=== PATIENT | male | born 1980 | race Caucasian/White ===

== ENCOUNTER 2018-01-28 14:04 | Observation (INO) | payer SELFPAY, MEDICAID ==
[2018-01-28 15:26] LABS: ADD MAN DIFF? NO
[2018-01-28 15:28] LABS: WHITE BLOOD COUNT 13.2 10^3/ul (4.8-10.8)
[2018-01-28 15:28] LABS: BASOPHILS % 0.3 % (0.0-2.0); EOSINOPHILS # 0.4 10^3/ul (0.0-0.5); EOSINOPHILS % 3.3 % (0.0-7.0); HEMATOCRIT 47.6 % (42.0-52.0); HEMOGLOBIN 17.1 g/dl (14.0-18.0); LYMPHOCYTES # 3.3 10^3/ul (0.8-2.9); LYMPHOCYTES % 25.2 % (15.0-51.0); MEAN CORPUSCULAR HEMOGLOBIN 33.3 pg (29.0-33.0); MEAN CORPUSCULAR HGB CONC 35.9 g/dl (32.0-37.0); MEAN CORPUSCULAR VOLUME 92.6 fl (82.0-101.0); MEAN PLATELET VOLUME 10.5 fl (7.4-10.4); MONOCYTE # 1.1 10^3/ul (0.3-0.9); MONOCYTES % 8.5 % (0.0-11.0); NEUTROPHIL # 8.2 10^3/ul (1.6-7.5); NEUTROPHILS % 62.2 % (39.0-77.0); PLATELET COUNT 270 10^3/UL (140-415); RED BLOOD COUNT 5.14 10^6/ul (4.70-6.10)
[2018-01-28] MEDS: ONDANSETRON 4 MG INJ IV (15:38)
[2018-01-28] MEDS: morphine 4 MG/ML VIAL IV (15:38)
[2018-01-28] MEDS: SOD CHLORIDE 0.9% 1,000 ML IV ×2 (15:39→18:37)
[2018-01-28 15:45] LABS: ALANINE AMINOTRANSFERASE 96 IU/L (13-69); ALBUMIN 4.4 g/dl (3.3-4.9); ALBUMIN/GLOBULIN RATIO 1.15; ALKALINE PHOSPHATASE 109 IU/L (42-121); ANION GAP 18 (8-16); ASPARTATE AMINO TRANSFERASE 100 IU/L (15-46); BILIRUBIN,INDIRECT 0.7 mg/dl (0-1.1); BILIRUBIN,TOTAL 0.7 mg/dl (0.2-1.3); BLOOD UREA NITROGEN 11 mg/dl (7-20); CALCIUM 9.4 mg/dl (8.4-10.2); CARBON DIOXIDE 27 mmol/L (21-31); CHLORIDE 100 mmol/L (97-110); CREATININE 0.69 mg/dl (0.61-1.24); GLUCOSE 104 mg/dl (70-220); LIPASE 1237 U/L (23-300); POTASSIUM 3.7 mmol/L (3.5-5.1); SODIUM 141 mmol/L (135-144); TOTAL PROTEIN 8.2 g/dl (6.1-8.1)
[2018-01-28] MEDS: HYDROmorphONE 0.5 MG/0.5 ML SYG IV (16:31)
[2018-01-28 16:40] LABS: ADD UMIC YES; UR ASCORBIC ACID 20 mg/dL (NEGATIVE); UR BILIRUBIN (Dip) NEGATIVE (NEGATIVE); UR BLOOD (Dip) 2+ mg/dL (NEGATIVE); UR CLARITY CLOUDY (CLEAR); UR COLOR AMBER (YELLOW); UR GLUCOSE (Dip) NEGATIVE (NEGATIVE); UR KETONES (Dip) NEGATIVE (NEGATIVE); UR LEUKOCYTE ESTERASE (Dip) NEGATIVE Leu/ul (NEGATIVE); UR MUCUS MANY /HPF (NONE SEEN); UR NITRITE (Dip) NEGATIVE (NEGATIVE); UR RBC 24 /HPF (0-5); UR TOTAL PROTEIN (Dip) 3+ mg/dl (NEGATIVE); UR UROBILINOGEN (Dip) NEGATIVE (NEGATIVE); UR WBC 2 /HPF (0-5)
[2018-01-28] MEDS ORDERED: ACETAMINOPHEN 325 MG TAB PO ×2 (17:00→17:30)
[2018-01-28] MEDS ORDERED: ONDANSETRON 4 MG INJ IV (17:00)
[2018-01-28 17:03] LABS: ETHANOL < 10.0 mg/dl
[2018-01-28] MEDS ORDERED: HYDROmorphONE 0.5 MG/0.5 ML SYG IV (17:30)
[2018-01-28] MEDS ORDERED: MAGNESIUM HYDROXIDE 30ML CUP PO (17:30)
[2018-01-28] MEDS ORDERED: DOCUSATE SODIUM 100 MG CAP PO (17:30)
[2018-01-28] MEDS ORDERED: NACL 0.9% 3 ML SYG IV (17:30)
[2018-01-28] MEDS ORDERED: GLUCOSE GEL 15 GRAM TUBE BUCCAL (18:30)
[2018-01-28] MEDS ORDERED: DEXTROSE 50% 50 ML SYRINGE IV ×2 (18:30)
[2018-01-28] MEDS ORDERED: GLUCOSE GEL 15 GRAM TUBE PO ×2 (18:30)
[2018-01-28] MEDS ORDERED: GLUCAGON 1 MG INJ IM (18:30)
[2018-01-28] MEDS: DEXTROSE 5%-0.45% NACL 1,000 ML IV (18:56)
[2018-01-28 20:03] LABS: HEMOGLOBIN A1C 5.7 % (0-5.9)
[2018-01-28 20:06] LABS: CHOLESTEROL 203 mg/dl (100-200)
[2018-01-28 20:06] LABS: CHOL/HDL RATIO 5.2 RATIO; HDL CHOLESTEROL 39 mg/dl (28-63)
[2018-01-28] MEDS: INSULIN ASPART [NOVOLOG] 3 ML PEN SC (20:18)
[2018-01-28 20:31] LABS: TRIGLYCERIDES 1043 mg/dl (0-149)
[2018-01-28] MEDS: morphine 2 MG INJ IV (22:39)
[2018-01-29] MEDS: morphine 2 MG INJ IV ×4 (02:45→22:19)
[2018-01-29] MEDS: INSULIN ASPART [NOVOLOG] 3 ML PEN SC ×5 (05:00→20:28)
[2018-01-29] MEDS: PANTOPRAZOLE 40 MG INJ IV (05:34)
[2018-01-29] MEDS: DEXTROSE 5%-0.45% NACL 1,000 ML IV (05:34)
[2018-01-29] MEDS: ONDANSETRON 4 MG INJ IV (05:44)
[2018-01-29 05:57] LABS: ADD MAN DIFF? NO
[2018-01-29 06:00] LABS: WHITE BLOOD COUNT 11.6 10^3/ul (4.8-10.8)
[2018-01-29 06:00] LABS: BASOPHILS % 0.3 % (0.0-2.0); EOSINOPHILS # 0.5 10^3/ul (0.0-0.5); EOSINOPHILS % 4.3 % (0.0-7.0); HEMATOCRIT 43.6 % (42.0-52.0); HEMOGLOBIN 15.7 g/dl (14.0-18.0); LYMPHOCYTES # 2.8 10^3/ul (0.8-2.9); LYMPHOCYTES % 23.9 % (15.0-51.0); MEAN CORPUSCULAR HEMOGLOBIN 32.5 pg (29.0-33.0); MEAN CORPUSCULAR VOLUME 90.3 fl (82.0-101.0); MEAN PLATELET VOLUME 10.5 fl (7.4-10.4); MONOCYTES % 8.2 % (0.0-11.0); NEUTROPHIL # 7.3 10^3/ul (1.6-7.5); PLATELET COUNT 219 10^3/UL (140-415); RED BLOOD COUNT 4.83 10^6/ul (4.70-6.10); RED CELL DISTRIBUTION WIDTH 12.1 % (11.5-14.5)
[2018-01-29 06:44] LABS: LIPASE 2148 U/L (23-300)
[2018-01-29 06:46] LABS: ALANINE AMINOTRANSFERASE 66 IU/L (13-69); ALBUMIN/GLOBULIN RATIO 1.29; ALKALINE PHOSPHATASE 92 IU/L (42-121); ANION GAP 16 (8-16); ASPARTATE AMINO TRANSFERASE 59 IU/L (15-46); BILIRUBIN,INDIRECT 1.5 mg/dl (0-1.1); BILIRUBIN,TOTAL 1.5 mg/dl (0.2-1.3); BLOOD UREA NITROGEN 5 mg/dl (7-20); CALCIUM 8.7 mg/dl (8.4-10.2); CARBON DIOXIDE 25 mmol/L (21-31); CHLORIDE 100 mmol/L (97-110); GLUCOSE 127 mg/dl (70-220); MAGNESIUM 1.3 mg/dl (1.7-2.5); POTASSIUM 3.1 mmol/L (3.5-5.1); SODIUM 138 mmol/L (135-144); TOTAL PROTEIN 7.1 g/dl (6.1-8.1)
[2018-01-29] MEDS: ASPIRIN (EC) 81 MG TAB PO (08:20)
[2018-01-29] MEDS ORDERED: LORAZEPAM 1 MG TAB PO (11:30)
[2018-01-29] MEDS: POTASSIUM CHLORIDE (SR) 20 MEQ TAB PO (12:00)
[2018-01-29] MEDS: FOLIC ACID 1 MG TAB PO (12:05)
[2018-01-29] MEDS: THIAMINE 100 MG TAB PO (12:05)
[2018-01-29] MEDS: NS + KCL 20 MEQ 1,000 ML IV ×2 (12:06→21:30)
[2018-01-29] MEDS: MAGNESIUM SULFATE 3 GM in DEXTROSE 5% 100 ML IVPB (13:09)
[2018-01-29] MEDS: INFLUENZA VIRUS VACCINE 0.5 ML SYG IM* (16:47)
[2018-01-29] MEDS ORDERED: INSULIN ASPART [NOVOLOG] 3 ML PEN SC (18:05)
[2018-01-30] MEDS: NS + KCL 20 MEQ 1,000 ML IV ×3 (01:40→17:30)
[2018-01-30] MEDS: ACCU-CHEK XX (02:00)
[2018-01-30] MEDS: PANTOPRAZOLE 40 MG INJ IV (05:41)
[2018-01-30 06:38] LABS: ADD MAN DIFF? NO
[2018-01-30 06:47] LABS: WHITE BLOOD COUNT 9.8 10^3/ul (4.8-10.8)
[2018-01-30 06:47] LABS: BASOPHILS % 0.3 % (0.0-2.0); EOSINOPHILS # 0.9 10^3/ul (0.0-0.5); EOSINOPHILS % 8.7 % (0.0-7.0); HEMATOCRIT 44.9 % (42.0-52.0); HEMOGLOBIN 15.5 g/dl (14.0-18.0); LYMPHOCYTES # 2.1 10^3/ul (0.8-2.9); LYMPHOCYTES % 21.5 % (15.0-51.0); MEAN CORPUSCULAR HEMOGLOBIN 32.4 pg (29.0-33.0); MEAN CORPUSCULAR HGB CONC 34.5 g/dl (32.0-37.0); MEAN CORPUSCULAR VOLUME 93.9 fl (82.0-101.0); MONOCYTE # 0.7 10^3/ul (0.3-0.9); MONOCYTES % 6.6 % (0.0-11.0); NEUTROPHIL # 6.1 10^3/ul (1.6-7.5); NEUTROPHILS % 62.5 % (39.0-77.0); PLATELET COUNT 201 10^3/UL (140-415); RED BLOOD COUNT 4.78 10^6/ul (4.70-6.10); RED CELL DISTRIBUTION WIDTH 12.2 % (11.5-14.5)
[2018-01-30 07:15] LABS: ALANINE AMINOTRANSFERASE 58 IU/L (13-69); ALBUMIN 4.2 g/dl (3.3-4.9); ALBUMIN/GLOBULIN RATIO 1.27; ALKALINE PHOSPHATASE 93 IU/L (42-121); ANION GAP 15 (8-16); ASPARTATE AMINO TRANSFERASE 47 IU/L (15-46); BILIRUBIN,INDIRECT 1.6 mg/dl (0-1.1); BILIRUBIN,TOTAL 1.6 mg/dl (0.2-1.3); BLOOD UREA NITROGEN 5 mg/dl (7-20); CALCIUM 9.2 mg/dl (8.4-10.2); CARBON DIOXIDE 30 mmol/L (21-31); CHLORIDE 101 mmol/L (97-110); CREATININE 0.72 mg/dl (0.61-1.24); GLUCOSE 100 mg/dl (70-220); LIPASE 1037 U/L (23-300); POTASSIUM 4.3 mmol/L (3.5-5.1); SODIUM 142 mmol/L (135-144); TOTAL PROTEIN 7.5 g/dl (6.1-8.1)
[2018-01-30] MEDS: INSULIN ASPART [NOVOLOG] 3 ML PEN SC ×3 (08:00→17:45)
[2018-01-30] MEDS: ASPIRIN (EC) 81 MG TAB PO (09:19)
[2018-01-30] MEDS: FOLIC ACID 1 MG TAB PO (09:19)
[2018-01-30] MEDS: THIAMINE 100 MG TAB PO (09:20)
[2018-01-30] MEDS ORDERED: morphine LIQ (10 MG/5 ML) CUP PO (15:00)
== END 2018-01-30 18:40 | disposition home or self-care (01) ==
LOC: FTE 14:04 → PP2 16:56
DX: K85.20 Alcohol induced acute pancreatitis without necrosis or infection (principal); E10.9 Type 1 diabetes mellitus without complications; R74.0 Nonspecific elevation of levels of transaminase and lactic acid dehydrogenase [LDH]; R11.2 Nausea with vomiting, unspecified; F10.10 Alcohol abuse, uncomplicated; Z79.84 Long term (current) use of oral hypoglycemic drugs; Z79.82 Long term (current) use of aspirin; Z23 Encounter for immunization
CPT/HCPCS: 76705; 80053; 80061; 80306; 81001; 82962; 83036; 83690; 83735; 85025; 90686; 96374; 96375; 99285-25; G0378

== ENCOUNTER 2018-06-30 23:24 | Emergency (ER) | payer SELFPAY | END 2018-07-01 02:49 | disposition left against medical advice (07) | LOC: FTE 23:24 | DX: Z53.21 Procedure and treatment not carried out due to patient leaving prior to being seen by health care provider (principal) ==

== ENCOUNTER 2018-08-26 12:07 | Inpatient (IN) | payer MEDICAID ==
[2018-08-26] MEDS: ONDANSETRON 4 MG INJ IV (13:36)
[2018-08-26] MEDS: HYDROmorphONE 1 MG/ML SYG IV (13:36)
[2018-08-26] MEDS: FAMOTIDINE 20 MG TAB PO ×2 (13:36→20:21)
[2018-08-26] MEDS: SOD CHLORIDE 0.9% 1,000 ML IV (13:36)
[2018-08-26 13:46] LABS: ADD MAN DIFF? NO
[2018-08-26 13:47] LABS: BASOPHIL # 0.1 10^3/ul (0.0-0.1); BASOPHILS % 0.4 % (0.0-2.0); EOSINOPHILS # 0.3 10^3/ul (0.0-0.5); EOSINOPHILS % 1.9 % (0.0-7.0); HEMOGLOBIN 16.1 g/dl (14.0-18.0); LYMPHOCYTES # 1.8 10^3/ul (0.8-2.9); LYMPHOCYTES % 12.6 % (15.0-51.0); MEAN CORPUSCULAR HEMOGLOBIN 32.7 pg (29.0-33.0); MEAN CORPUSCULAR VOLUME 93.5 fl (82.0-101.0); MEAN PLATELET VOLUME 10.2 fl (7.4-10.4); MONOCYTE # 0.9 10^3/ul (0.3-0.9); MONOCYTES % 6.6 % (0.0-11.0); NEUTROPHILS % 77.9 % (39.0-77.0); PLATELET COUNT 272 10^3/UL (140-415); RED BLOOD COUNT 4.92 10^6/ul (4.70-6.10); RED CELL DISTRIBUTION WIDTH 12.5 % (11.5-14.5)
[2018-08-26 13:47] LABS: WHITE BLOOD COUNT 14.1 10^3/ul (4.8-10.8)
[2018-08-26 13:51] LABS: ADD UMIC YES; UR ASCORBIC ACID NEGATIVE (NEGATIVE); UR BILIRUBIN (Dip) NEGATIVE (NEGATIVE); UR BLOOD (Dip) 2+ mg/dL (NEGATIVE); UR CLARITY SLIGHTLY CLOUDY (CLEAR); UR COLOR YELLOW (YELLOW); UR GLUCOSE (Dip) NEGATIVE (NEGATIVE); UR KETONES (Dip) NEGATIVE (NEGATIVE); UR LEUKOCYTE ESTERASE (Dip) NEGATIVE Leu/ul (NEGATIVE); UR MUCUS FEW /HPF (NONE SEEN); UR NITRITE (Dip) NEGATIVE (NEGATIVE); UR RBC 5 /HPF (0-5); UR SPECIFIC GRAVITY (Dip) 1.027 (1.003-1.030); UR TOTAL PROTEIN (Dip) 2+ mg/dl (NEGATIVE); UR UROBILINOGEN (Dip) NEGATIVE (NEGATIVE); UR WBC 2 /HPF (0-5)
[2018-08-26 14:03] LABS: ALANINE AMINOTRANSFERASE 53 IU/L (13-69); ALBUMIN 4.6 g/dl (3.3-4.9); ALBUMIN/GLOBULIN RATIO 1.12; ALKALINE PHOSPHATASE 111 IU/L (42-121); ANION GAP 10 (5-13); ASPARTATE AMINO TRANSFERASE 48 IU/L (15-46); BILIRUBIN,INDIRECT 0.6 mg/dl (0-1.1); BILIRUBIN,TOTAL 0.6 mg/dl (0.2-1.3); BLOOD UREA NITROGEN 9 mg/dl (7-20); CALCIUM 9.5 mg/dl (8.4-10.2); CARBON DIOXIDE 26 mmol/L (21-31); CHLORIDE 99 mmol/L (97-110); CREATININE 0.72 mg/dl (0.61-1.24); Estimated GFR > 60 mL/min (>60); GLUCOSE 112 mg/dl (70-220); LIPASE 958 U/L (23-300); POTASSIUM 3.6 mmol/L (3.5-5.1); SODIUM 135 mmol/L (135-144); TOTAL PROTEIN 8.7 g/dl (6.1-8.1)
[2018-08-26] MEDS ORDERED: D5W-0.45 NACL + KCL 20 MEQ 1,000 ML IV (14:59)
[2018-08-26] MEDS ORDERED: ACETAMINOPHEN 325 MG TAB PO ×2 (15:00→17:00)
[2018-08-26] MEDS ORDERED: ONDANSETRON 4 MG INJ IV ×2 (15:00→17:00)
[2018-08-26] MEDS: HYDROmorphONE 0.5 MG/0.5 ML SYG IV (15:02)
[2018-08-26] MEDS: LACTATED RINGER'S 1,000 ML IV (15:16)
[2018-08-26] MEDS: LORAZEPAM 2 MG INJ IV (15:16)
[2018-08-26] MEDS ORDERED: NACL 0.9% 3 ML SYG IV ×2 (16:00→17:00)
[2018-08-26 16:42] LABS: TRIGLYCERIDES 1295 mg/dl (0-149)
[2018-08-26] MEDS ORDERED: DOCUSATE SODIUM 100 MG CAP PO (17:00)
[2018-08-26] MEDS ORDERED: LORAZEPAM 2 MG INJ IV (17:00)
[2018-08-26] MEDS ORDERED: MAGNESIUM HYDROXIDE 30ML CUP PO (17:00)
[2018-08-26 17:47] LABS: HEMOGLOBIN A1C 5.4 % (0-5.9)
[2018-08-26] MEDS: FENOFIBRATE 145 MG TAB PO (17:48)
[2018-08-26] MEDS: MULTIVITAMINS 10 ML, THIAMINE 100 MG, FOLIC ACID 1 MG in SOD CHLORIDE 0.9% 1,000 ML IVPB (17:49)
[2018-08-26] MEDS: HYDROCODONE/APAP (5/325) TAB PO (18:19)
[2018-08-26] MEDS: DEXTROSE 5%-0.45% NACL 1,000 ML IV (19:00)
[2018-08-26] MEDS: FISH OIL 1,000 MG CAP PO (20:21)
[2018-08-26] MEDS: morphine 2 MG INJ IV (20:22)
[2018-08-27] MEDS: morphine 2 MG INJ IV (00:36)
[2018-08-27] MEDS: DEXTROSE 5%-0.45% NACL 1,000 ML IV ×3 (02:02→22:39)
[2018-08-27] MEDS: HYDROCODONE/APAP (5/325) TAB PO (06:43)
[2018-08-27 08:15] LABS: ADD MAN DIFF? NO
[2018-08-27] MEDS: FAMOTIDINE 20 MG TAB PO ×2 (08:22→21:00)
[2018-08-27] MEDS: MULTIVITAMINS 10 ML, THIAMINE 100 MG, FOLIC ACID 1 MG in SOD CHLORIDE 0.9% 1,000 ML IVPB (08:22)
[2018-08-27] MEDS: FISH OIL 1,000 MG CAP PO ×2 (08:22→21:00)
[2018-08-27 08:25] LABS: BASOPHILS % 0.3 % (0.0-2.0); EOSINOPHILS # 0.7 10^3/ul (0.0-0.5); EOSINOPHILS % 7.3 % (0.0-7.0); HEMATOCRIT 40.6 % (42.0-52.0); HEMOGLOBIN 14.5 g/dl (14.0-18.0); LYMPHOCYTES # 2.1 10^3/ul (0.8-2.9); LYMPHOCYTES % 20.9 % (15.0-51.0); MEAN CORPUSCULAR HEMOGLOBIN 33.1 pg (29.0-33.0); MEAN CORPUSCULAR HGB CONC 35.7 g/dl (32.0-37.0); MEAN CORPUSCULAR VOLUME 92.7 fl (82.0-101.0); MEAN PLATELET VOLUME 10.5 fl (7.4-10.4); MONOCYTE # 0.8 10^3/ul (0.3-0.9); MONOCYTES % 8.4 % (0.0-11.0); NEUTROPHIL # 6.2 10^3/ul (1.6-7.5); NEUTROPHILS % 62.6 % (39.0-77.0); PLATELET COUNT 226 10^3/UL (140-415); RED BLOOD COUNT 4.38 10^6/ul (4.70-6.10); RED CELL DISTRIBUTION WIDTH 12.6 % (11.5-14.5)
[2018-08-27 08:25] LABS: WHITE BLOOD COUNT 9.9 10^3/ul (4.8-10.8)
[2018-08-27] MEDS: ASPIRIN (EC) 81 MG TAB PO (08:25)
[2018-08-27 08:40] LABS: ALBUMIN 3.8 g/dl (3.3-4.9); ANION GAP 9 (5-13); BLOOD UREA NITROGEN 4 mg/dl (7-20); CALCIUM 8.7 mg/dl (8.4-10.2); CARBON DIOXIDE 28 mmol/L (21-31); CHLORIDE 98 mmol/L (97-110); GLUCOSE 127 mg/dl (70-220); LIPASE 871 U/L (23-300); MAGNESIUM 1.5 mg/dl (1.7-2.5); PHOSPHORUS 3.4 mg/dl (2.5-4.9); POTASSIUM 3.8 mmol/L (3.5-5.1); SODIUM 135 mmol/L (135-144)
[2018-08-27] MEDS ORDERED: DEXTROSE 50% 50 ML SYRINGE IV (09:00)
[2018-08-27] MEDS: FENOFIBRATE 145 MG TAB PO (09:16)
[2018-08-27] MEDS: INSULIN REGULAR, HUMAN 100 UNIT/1 ML 3ML VIAL IVP (09:24)
[2018-08-27 09:31] LABS: TRIGLYCERIDES 493 mg/dl (0-149)
[2018-08-28] MEDS: DEXTROSE 5%-0.45% NACL 1,000 ML IV ×2 (03:13→08:33)
[2018-08-28 07:33] LABS: ADD MAN DIFF? NO
[2018-08-28 07:34] LABS: BASOPHILS % 0.4 % (0.0-2.0); EOSINOPHILS # 0.7 10^3/ul (0.0-0.5); EOSINOPHILS % 7.7 % (0.0-7.0); HEMATOCRIT 39.3 % (42.0-52.0); HEMOGLOBIN 13.6 g/dl (14.0-18.0); LYMPHOCYTES # 2.7 10^3/ul (0.8-2.9); LYMPHOCYTES % 29.9 % (15.0-51.0); MEAN CORPUSCULAR HEMOGLOBIN 32.9 pg (29.0-33.0); MEAN CORPUSCULAR HGB CONC 34.6 g/dl (32.0-37.0); MEAN CORPUSCULAR VOLUME 95.2 fl (82.0-101.0); MEAN PLATELET VOLUME 10.6 fl (7.4-10.4); MONOCYTE # 0.8 10^3/ul (0.3-0.9); MONOCYTES % 8.5 % (0.0-11.0); NEUTROPHIL # 4.7 10^3/ul (1.6-7.5); NEUTROPHILS % 52.9 % (39.0-77.0); PLATELET COUNT 202 10^3/UL (140-415); RED BLOOD COUNT 4.13 10^6/ul (4.70-6.10)
[2018-08-28 07:34] LABS: WHITE BLOOD COUNT 8.9 10^3/ul (4.8-10.8)
[2018-08-28] MEDS: ASPIRIN (EC) 81 MG TAB PO (08:19)
[2018-08-28 08:20] LABS: TRIGLYCERIDES 246 mg/dl (0-149)
[2018-08-28] MEDS: FAMOTIDINE 20 MG TAB PO (08:20)
[2018-08-28] MEDS: FISH OIL 1,000 MG CAP PO (08:20)
[2018-08-28] MEDS: FENOFIBRATE 145 MG TAB PO (08:20)
[2018-08-28 08:23] LABS: ALBUMIN 3.8 g/dl (3.3-4.9); ANION GAP 9 (5-13); BLOOD UREA NITROGEN 3 mg/dl (7-20); CARBON DIOXIDE 29 mmol/L (21-31); CHLORIDE 102 mmol/L (97-110); CREATININE 0.67 mg/dl (0.61-1.24); GLUCOSE 120 mg/dl (70-220); MAGNESIUM 1.9 mg/dl (1.7-2.5); PHOSPHORUS 3.6 mg/dl (2.5-4.9); POTASSIUM 3.3 mmol/L (3.5-5.1); SODIUM 140 mmol/L (135-144)
[2018-08-28] MEDS: MULTIVITAMINS 10 ML, THIAMINE 100 MG, FOLIC ACID 1 MG in SOD CHLORIDE 0.9% 1,000 ML IVPB (08:24)
[2018-08-28] MEDS: POTASSIUM CHLORIDE (SR) 20 MEQ TAB PO (09:10)
[2018-08-28 09:24] LABS: LIPASE 531 U/L (23-300)
[2018-08-28] MEDS: HYDROCODONE/APAP (5/325) TAB PO (15:00)
== END 2018-08-28 18:00 | disposition home or self-care (01) | DRG 440 ==
LOC: FTE 12:07 → 5EC 14:59
DX: K85.20 Alcohol induced acute pancreatitis without necrosis or infection (principal); F10.20 Alcohol dependence, uncomplicated; E11.9 Type 2 diabetes mellitus without complications; E78.1 Pure hyperglyceridemia; Z79.4 Long term (current) use of insulin; Z79.84 Long term (current) use of oral hypoglycemic drugs; Z79.82 Long term (current) use of aspirin
CPT/HCPCS: 36415; 74176; 80053; 80069; 81001; 82962; 83036; 83690; 83735; 84478; 85025; 96374; 96375; 96376; 99285-25

== ENCOUNTER 2019-04-06 14:11 | Emergency (ER) | payer MEDICAID ==
[2019-04-06 15:27] LABS: ADD MAN DIFF? NO
[2019-04-06 15:29] LABS: WHITE BLOOD COUNT 8.2 10^3/ul (4.8-10.8)
[2019-04-06 15:29] LABS: BASOPHIL # 0.1 10^3/ul (0.0-0.1); BASOPHILS % 0.6 % (0.0-2.0); EOSINOPHILS # 0.4 10^3/ul (0.0-0.5); EOSINOPHILS % 4.3 % (0.0-7.0); HEMATOCRIT 42.4 % (42.0-52.0); HEMOGLOBIN 14.7 g/dl (14.0-18.0); LYMPHOCYTES % 37.3 % (15.0-51.0); MEAN CORPUSCULAR HEMOGLOBIN 32.4 pg (29.0-33.0); MEAN CORPUSCULAR HGB CONC 34.7 g/dl (32.0-37.0); MEAN CORPUSCULAR VOLUME 93.4 fl (82.0-101.0); MONOCYTE # 0.8 10^3/ul (0.3-0.9); MONOCYTES % 9.9 % (0.0-11.0); NEUTROPHIL # 3.9 10^3/ul (1.6-7.5); NEUTROPHILS % 47.7 % (39.0-77.0); PLATELET COUNT 282 10^3/UL (140-415); RED BLOOD COUNT 4.54 10^6/ul (4.70-6.10); RED CELL DISTRIBUTION WIDTH 12.9 % (11.5-14.5)
[2019-04-06] MEDS: ALPRAZOLAM 0.25 MG TAB PO (15:29)
[2019-04-06] MEDS: KETOROLAC 15 MG INJ IV (15:30)
[2019-04-06] MEDS: SOD CHLORIDE 0.9% 500 ML IV (15:30)
[2019-04-06 15:48] LABS: ALANINE AMINOTRANSFERASE 45 IU/L (13-69); ALBUMIN 4.2 g/dl (3.3-4.9); ALBUMIN/GLOBULIN RATIO 1.13; ALKALINE PHOSPHATASE 88 IU/L (42-121); ANION GAP 11 (5-13); ASPARTATE AMINO TRANSFERASE 47 IU/L (15-46); BILIRUBIN,INDIRECT 0.7 mg/dl (0-1.1); BILIRUBIN,TOTAL 0.7 mg/dl (0.2-1.3); BLOOD UREA NITROGEN 9 mg/dl (7-20); CALCIUM 8.7 mg/dl (8.4-10.2); CARBON DIOXIDE 26 mmol/L (21-31); CHLORIDE 103 mmol/L (97-110); CREATININE 0.63 mg/dl (0.61-1.24); Estimated GFR > 60 mL/min (>60); GLUCOSE 106 mg/dl (70-220); LIPASE 251 U/L (23-300); POTASSIUM 3.9 mmol/L (3.5-5.1); SODIUM 140 mmol/L (135-144); TOTAL PROTEIN 7.9 g/dl (6.1-8.1)
[2019-04-06 15:59] LABS: TROPONIN-I < 0.012 ng/ml (0.000-0.120)
== END 2019-04-06 16:55 | disposition home or self-care (01) ==
LOC: E/R 14:11
DX: R07.89 Other chest pain (principal); E11.9 Type 2 diabetes mellitus without complications
CPT/HCPCS: 36415; 71045; 80053; 83690; 84484; 85025; 93005; 96374; 99285-25

== ENCOUNTER 2019-06-08 01:43 | Emergency (ER) | payer MEDICAID ==
[2019-06-08] MEDS: LIDOCAINE/MYLANTA 40 ML BTL PO (02:51)
[2019-06-08] MEDS: FAMOTIDINE 20 MG TAB PO (02:51)
[2019-06-08] MEDS: DICYCLOMINE 10 MG CAP PO (02:51)
[2019-06-08] MEDS: ONDANSETRON 4 MG INJ IV (02:51)
[2019-06-08] MEDS: SOD CHLORIDE 0.9% 1,000 ML IV (02:51)
[2019-06-08] MEDS: morphine 2 MG INJ IV (02:52)
[2019-06-08 02:57] LABS: ADD MAN DIFF? NO
[2019-06-08 02:59] LABS: BASOPHIL # 0.1 10^3/ul (0.0-0.1); BASOPHILS % 0.8 % (0.0-2.0); EOSINOPHILS # 0.7 10^3/ul (0.0-0.5); HEMATOCRIT 43.1 % (42.0-52.0); HEMOGLOBIN 14.6 g/dl (14.0-18.0); LYMPHOCYTES # 3.3 10^3/ul (0.8-2.9); LYMPHOCYTES % 36.3 % (15.0-51.0); MEAN CORPUSCULAR HEMOGLOBIN 33.2 pg (29.0-33.0); MEAN CORPUSCULAR HGB CONC 33.9 g/dl (32.0-37.0); MEAN PLATELET VOLUME 10.2 fl (7.4-10.4); MONOCYTE # 0.7 10^3/ul (0.3-0.9); MONOCYTES % 8.2 % (0.0-11.0); NEUTROPHIL # 4.2 10^3/ul (1.6-7.5); NEUTROPHILS % 46.4 % (39.0-77.0); PLATELET COUNT 298 10^3/UL (140-415); RED CELL DISTRIBUTION WIDTH 12.6 % (11.5-14.5)
[2019-06-08 03:16] LABS: ALANINE AMINOTRANSFERASE 50 IU/L (13-69); ALBUMIN 4.1 g/dl (3.3-4.9); ALKALINE PHOSPHATASE 104 IU/L (42-121); ANION GAP 9 (5-13); ASPARTATE AMINO TRANSFERASE 57 IU/L (15-46); BILIRUBIN,INDIRECT 0.4 mg/dl (0-1.1); BILIRUBIN,TOTAL 0.4 mg/dl (0.2-1.3); BLOOD UREA NITROGEN 8 mg/dl (7-20); CARBON DIOXIDE 29 mmol/L (21-31); CHLORIDE 102 mmol/L (97-110); CREATININE 0.74 mg/dl (0.61-1.24); Estimated GFR > 60 mL/min (>60); GLUCOSE 133 mg/dl (70-220); LIPASE 156 U/L (23-300); POTASSIUM 3.7 mmol/L (3.5-5.1); SODIUM 140 mmol/L (135-144); TOTAL PROTEIN 7.8 g/dl (6.1-8.1)
[2019-06-08] MEDS: METOCLOPRAMIDE 10 MG INJ IV (03:43)
== END 2019-06-08 05:16 | disposition home or self-care (01) ==
LOC: FTE 01:43
DX: R10.11 Right upper quadrant pain (principal)
CPT/HCPCS: 36415; 76705; 80053; 83690; 85025; 96374; 96375; 99285-25

== ENCOUNTER 2019-07-01 06:16 | Emergency (ER) | payer MEDICAID ==
[2019-07-01 06:58] LABS: ADD MAN DIFF? NO
[2019-07-01 07:03] LABS: BASOPHILS % 0.4 % (0.0-2.0); EOSINOPHILS # 0.9 10^3/ul (0.0-0.5); EOSINOPHILS % 8.7 % (0.0-7.0); HEMATOCRIT 43.8 % (42.0-52.0); HEMOGLOBIN 15.1 g/dl (14.0-18.0); LYMPHOCYTES # 2.2 10^3/ul (0.8-2.9); LYMPHOCYTES % 21.7 % (15.0-51.0); MEAN CORPUSCULAR HEMOGLOBIN 32.7 pg (29.0-33.0); MEAN CORPUSCULAR HGB CONC 34.5 g/dl (32.0-37.0); MEAN CORPUSCULAR VOLUME 94.8 fl (82.0-101.0); MEAN PLATELET VOLUME 10.5 fl (7.4-10.4); MONOCYTE # 0.7 10^3/ul (0.3-0.9); MONOCYTES % 6.6 % (0.0-11.0); NEUTROPHIL # 6.2 10^3/ul (1.6-7.5); PLATELET COUNT 251 10^3/UL (140-415); RED BLOOD COUNT 4.62 10^6/ul (4.70-6.10); RED CELL DISTRIBUTION WIDTH 12.3 % (11.5-14.5)
[2019-07-01 07:12] LABS: URINE BLOOD (Dip) POC 2+ (NEGATIVE); URINE GLUCOSE (Dip) POC Negative (NEGATIVE); URINE KETONES (Dip) POC Negative (NEGATIVE); URINE LEUKOCYTE EST (Dip) POC Negative (NEGATIVE); URINE NITRITE (Dip) POC Negative (NEGATIVE); URINE TOTAL PROTEIN POC 3+ (NEGATIVE)
[2019-07-01 07:20] LABS: ALANINE AMINOTRANSFERASE 41 IU/L (13-69); ALBUMIN 4.4 g/dl (3.3-4.9); ALBUMIN/GLOBULIN RATIO 1.37; ALKALINE PHOSPHATASE 103 IU/L (42-121); ANION GAP 10 (5-13); ASPARTATE AMINO TRANSFERASE 70 IU/L (15-46); BILIRUBIN,INDIRECT 1.5 mg/dl (0-1.1); BILIRUBIN,TOTAL 1.5 mg/dl (0.2-1.3); BLOOD UREA NITROGEN 14 mg/dl (7-20); CALCIUM 9.4 mg/dl (8.4-10.2); CARBON DIOXIDE 27 mmol/L (21-31); CHLORIDE 100 mmol/L (97-110); CREATININE 0.67 mg/dl (0.61-1.24); Estimated GFR > 60 mL/min (>60); GLUCOSE 132 mg/dl (70-220); LIPASE 309 U/L (23-300); POTASSIUM 3.5 mmol/L (3.5-5.1); SODIUM 137 mmol/L (135-144); TOTAL PROTEIN 7.6 g/dl (6.1-8.1)
[2019-07-01] MEDS: SOD CHLORIDE 0.9% 1,000 ML IV (10:11)
[2019-07-01] MEDS: ONDANSETRON 4 MG INJ IV (10:11)
[2019-07-01] MEDS: KETOROLAC 30 MG INJ IV (10:12)
[2019-07-01] MEDS: morphine 2 MG INJ IV (10:12)
== END 2019-07-01 11:15 | disposition home or self-care (01) ==
LOC: FTE 06:16
DX: K85.90 Acute pancreatitis without necrosis or infection, unspecified (principal)
CPT/HCPCS: 36415; 74176; 76705; 80053; 81003; 83690; 85025; 96374; 96375; 99285-25